=== PATIENT | male | born 1985 | race Caucasian/White ===

== ENCOUNTER 2018-03-11 10:17 | Observation (INO) | payer MEDICAID ==
--- NOTE | 2018-03-11 10:42 | EDPHY ---
H & P <Afshin Frias - Last Filed: 03/11/18 12:18> Smoking Status: Heavy smoker <Rob Franco - Last Filed: 03/11/18 16:23> Time Seen by Provider: 03/11/18 10:25 HPI/ROS: CHIEF COMPLAINT: Possible seizure HISTORY OF PRESENT ILLNESS: Patient is 32-year-old male here with his girlfriend and father with concern for possible apneic of an yesterday evening and seizure this morning. Call for an relates that approximately 2 months ago she noticed that he was gasping for air in the the night having trouble breathing. They have not followed up with a primary care physician or had any further evaluation for this. He has been suffering from insomnia and anxiety and girlfriend states that he has been taking Xanax but she does not know how often. Xanax is being given to him by a friend. She does not know if he is taking other medication for sleep and anxiety. Father states he is prescribed no medication as far as he knows. Yesterday he was feeling well and played golf and girlfriend states that there was no unusual behavior. Patient relates that yesterday evening he did cocaine and drinking alcohol. Denies other drug use history evening. He drinks most evenings but cannot say how much he drinks. Yesterday evening girlfriend notes that he was again gasping for air and who. To turn blue in the face until she repositioned him and he started breathing better and they both fell back to sleep. This morning he was acting confused and had what appeared to be a full body seizure or area girlfriend states he had shaking of all 4 extremities. She is uncertain how long this lasted but it self-resolved. He has not been sick recently and has had no fever or chills no cough sore throat vomiting or diarrhea. He has no history of seizures. REVIEW OF SYSTEMS: Constitutional: No fever, no chills. Eyes: No discharge. ENT: No sore throat. Cardiovascular: No chest pain, no palpitations. Respiratory: No cough, no shortness of breath. Gastrointestinal: No abdominal pain, no vomiting. Genitourinary: No hematuria. Musculoskeletal: No back pain. Skin: No rashes. Neurological: No headache. (Rob Franco) Physical Exam: General Appearance: Alert and no distress. Oriented to person place and time Eyes: Pupils equal and round no injection. Extraocular muscles intact Respiratory: Chest is nontender, lungs are clear to auscultation. Cardiac: regular rate and rhythm. No lower extremity edema Gastrointestinal: Abdomen is soft and nontender, no masses, bowel sounds normal. Musculoskeletal: Neck is supple and nontender. Moving all 4 extremities Extremities have full range of motion and are nontender. Skin: No rashes or lesions. (Rob Franco) Constitutional: Initial Vital Signs Temperature (C) 36.9 C 03/11/18 10:20 Heart Rate 91 03/11/18 10:20 Respiratory Rate 18 03/11/18 10:20 Blood Pressure 113/72 03/11/18 10:20 O2 Sat (%) 93 03/11/18 10:20 Allergies/Adverse Reactions: Penicillins Allergy (Verified 03/11/18 10:19) Home Medications: Medication Instructions Recorded NK [No Known Home Meds] 06/02/15 Medical Decision Making - Diagnostics Imaging: Discussed imaging studies w/ air sealing technician Radiologist, I viewed and interpreted images myself <Afshin Frias - Last Filed: 03/11/18 12:18> <Rob Franco - Last Filed: 03/11/18 16:23> - Diagnostics Imaging Results: Imaging Impressions Brain MRI 03/11/18 10:46 Impression: 1. 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 2. No acute intracranial abnormality seen or evidence of anoxic injury. If symptoms worsen, additional imaging may be necessary. These findings were discussed by telephone with Dr. Afshin Frias at 1218hrs. ED Course/Re-evaluation: 32-year-old male here with history of hypoxic event yesterday evening with gasping and then reported seizure this morning. This is likely a alcohol or benzodiazepine induced seizure. Is also positive for methamphetamines and cocaine. Be admitted for observation. MRI of the brain showed no evidence of anoxic brain injury. EKG revealed no a arrhythmia or evidence of ischemia. Labs with no acute anemia or electrolyte imbalance. (Rob Franco) Other Provider: [id number]: I spoke with Dr. Guido, radiologist, regarding patients brain MRI. There is no anoxic injury, there is an old right frontal injury. (Afshin Frias) - Data Points Laboratory Results: Laboratory Results 03/11/18 10:46 03/11/18 10:46 03/11/1818 03/11/18 10:46 10:46 10:46 WBC 11.48 10^3/uL H 10^3/uL (3.80-9.50) RBC 4.89 10^6/uL 10^6/uL (4.40-6.38) Hgb 15.2 g/dL g/dL (13.7-17.5) Hct 43.1 % % (40.0-51.0) MCV 88.1 fL fL (81.5-99.8) MCH 31.1 pg pg (27.9-34.1) MCHC 35.3 g/dL g/dL (32.4-36.7) RDW 11.9 % % (11.5-15.2) Plt Count 299 10^3/uL 10^3/uL (150-400) MPV 9.5 fL fL (8.7-11.7) Neut % (Auto) 79.8 % H % (39.3-74.2) Lymph % (Auto) 13.0 % L % (15.0-45.0) [place] % (Auto) 6.5 % % (4.5-13.0) Eos % (Auto) 0.2 % L % (0.6-7.6) Baso % (Auto) 0.3 % % (0.3-1.7) Nucleat RBC Rel Count 0.0 % % (0.0-0.2) Absolute Neuts (auto) 9.16 10^3/uL H 10^3/uL (1.70-6.50) Absolute Lymphs (auto) 1.49 10^3/uL 10^3/uL (1.00-3.00) Absolute Monos (auto) 0.75 10^3/uL 10^3/uL (0.30-0.80) Absolute Eos (auto) 0.02 10^3/uL L 10^3/uL (0.03-0.40) Absolute Basos (auto) 0.04 10^3/uL 10^3/uL (0.02-0.10) Absolute Nucleated RBC 0.00 10^3/uL 10^3/uL (0-0.01) Immature Gran % 0.2 % % (0.0-1.1) Immature Gran # 0.02 10^3/uL 10^3/uL (0.00-0.10) Sodium 136 mEq/L mEq/L (135-145) Potassium 3.9 mEq/L mEq/L (3.3-5.0) Chloride 103 mEq/L mEq/L (97-110) Carbon Dioxide 20 mEq/l L mEq/l (22-31) Anion Gap 13 mEq/L mEq/L (8-16) BUN 10 mg/dL mg/dL (7-23) Creatinine 0.8 mg/dL mg/dL (0.7-1.3) Estimated GFR > 60 Glucose 97 mg/dL mg/dL (70-100) Calcium 9.4 mg/dL mg/dL (8.5-10.4) Magnesium 1.9 mg/dL mg/dL (1.6-2.3) Total Bilirubin 1.3 mg/dL mg/dL (0.1-1.4) AST 39 IU/L IU/L (17-59) ALT 35 IU/L IU/L (21-72) Alkaline Phosphatase 48 IU/L IU/L (38-126) POC Troponin I 0.00 ng/mL ng/mL (0.00-0.08) Total Protein 6.8 g/dL g/dL (6.3-8.2) Albumin 4.1 g/dL g/dL (3.5-5.0) Urine Opiates Screen Urine Barbiturates Ur Phencyclidine Scrn Ur Amphetamine Screen U Benzodiazepines Scrn Urine Cocaine Screen U Marijuana (THC) Screen Ethyl Alcohol < 10 mg/dL mg/dL (0-10) 03/11/18 10:30 WBC RBC Hgb Hct MCV MCH MCHC RDW Plt Count MPV Neut % (Auto) Lymph % (Auto) [place] % (Auto) Eos % (Auto) Baso % (Auto) Nucleat RBC Rel Count Absolute Neuts (auto) Absolute Lymphs (auto) Absolute Monos (auto) Absolute Eos (auto) Absolute Basos (auto) Absolute Nucleated RBC Immature Gran % Immature Gran # Sodium Potassium Chloride Carbon Dioxide Anion Gap BUN Creatinine Estimated GFR Glucose Calcium Magnesium Total Bilirubin AST ALT Alkaline Phosphatase POC Troponin I Total Protein Albumin Urine Opiates Screen NEGATIVE (NEGATIVE) Urine Barbiturates NEGATIVE (NEGATIVE) Ur Phencyclidine Scrn NEGATIVE (NEGATIVE) Ur Amphetamine Screen NON-NEGATIVE H (NEGATIVE) U Benzodiazepines Scrn NEGATIVE (NEGATIVE) Urine Cocaine Screen NON-NEGATIVE H (NEGATIVE) U Marijuana (THC) Screen NON-NEGATIVE H (NEGATIVE) Ethyl Alcohol Medications Given: Acetaminophen (Tylenol) 650 mg PO Q4HRS PRN PRN Reason: Pain, Mild/Fever, Can Take PO Stop: 09/07/18 12:34 Last Admin: 03/11/18 13:40 Dose: 650 mg Folic Acid (Folic Acid) 1 mg PO DAILY STACEY Stop: 09/07/18 12:44 Last Admin: 03/11/18 13:41 Dose: 1 mg Nicotine (Nicoderm Cq) 14 mg TD DAILY STACEY Stop: 09/07/18 15:29 Last Admin: 03/11/18 15:56 Dose: 14 mg Discontinued Medications Sodium Chloride (Ns) 1,000 mls @ 0 mls/hr IV EDNOW ONE; Wide Open PRN Reason: Protocol Stop: 03/11/18 10:47 Last Admin: 03/11/18 10:47 Dose: 1,000 mls Lorazepam (Ativan) 1 mg PO BID STACEY Stop: 09/07/18 12:44 Last Admin: 03/11/18 13:41 Dose: 1 mg Point of Care Test Results: Chemistry 03/11/18 10:46 POC Troponin I 0.00 ng/mL ng/mL (0.00-0.08) Departure <Afshin Frias - Last Filed: 03/11/18 12:18> <Rob Franco - Last Filed: 03/11/18 16:23> - Departure Disposition: [facility] Inpatient Acute Condition: Fair
[2018-03-11] MEDS ORDERED: NS 1,000 ML IV ONE (10:46)
[2018-03-11 10:58] LABS: PLATELET COUNT 299 10^3/uL (150-400)
[2018-03-11] MEDS ORDERED: LORazepam 1 MG TAB PO SCH (12:45)
[2018-03-11] MEDS: ACETAMINOPHEN 325 MG TAB PO PRN ×2 (13:40→21:32)
[2018-03-11] MEDS: FOLIC ACID 1 MG TAB PO SCH (13:41)
--- NOTE | 2018-03-11 15:28 | PDGENHP ---
History and Physical - Chief Complaint seizure - History of Present Illness 32 yo male with h/o polysubstance abuse presents to ED after witnessed seizure. He has been seeing an addiction counselor and trying to cut back on etoh, but last night used etoh, cocaine and methamphetamine. He snorts his drugs, denies IVDA. GF says he gets a supply of xanax from a friend and takes a lot of them until his supply runs out. She thinks he ran out 1-2 days ago. She apparently witnessed him having an apneic episode and then he turned blue. He denies taking opiates, but has occasionally used percocet from the street per his girlfriend. In the ED, an MRI was negative for an acute process, but showed old encephalomalacia. Labs were normal. There was concern for seizure related to bzd w/d and he is admitted for further management. History Information - Allergies/Home Medication List Allergies/Adverse Reactions: Penicillins Allergy (Verified 03/11/18 10:19) Home Medications: Calcium Carbonate [Tums 500MG (*)] 500 - 1,000 mg PO Q2 PRN 03/11/18 [Last Taken 03/11/18] I have personally reviewed and updated: family history, medical history, social history, surgical history - Past Medical History Additional medical history: polysubstance abuse - Surgical History Reports: no pertinent surgical hx - Family History Additional family history: mother with alcoholism - Social History Smoking Status: Heavy smoker Alcohol Use: Heavy Drug Use: Cocaine, Marijuana, Other (meth, bzds) Additional social history: Lives with girlfriend who is present at the bedside. Review of Systems Review of Systems: ROS: 10pt was reviewed & negative except for what was stated in HPI & below Physical Exam Physical Exam: Temp Pulse Resp BP Pulse Ox 36.6 C 90 16 115/59 L 99 03/11/18 13:08 03/11/18 13:08 03/11/18 13:08 03/11/18 13:08 03/11/18 13:08 Constitutional: no apparent distress Eyes: PERRL Ears, Nose, Mouth, Throat: moist mucous membranes Cardiovascular: regular rate and rhythym, no murmur, rub, or gallop Respiratory: no respiratory distress, clear to auscultation Gastrointestinal: normoactive bowel sounds, soft, non-tender abdomen Skin: warm Musculoskeletal: full muscle strength Neurologic: AAOx3 Psychiatric: other (sedated, sleepy) Lab Data & Imaging Review 03/11/18 10:46 03/11/18 10:46 WBC 11.48 10^3/uL (3.80-9.50) H 03/11/18 10:46 RBC 4.89 10^6/uL (4.40-6.38) 03/11/18 10:46 Hgb 15.2 g/dL (13.7-17.5) 03/11/18 10:46 Hct 43.1 % (40.0-51.0) 03/11/18 10:46 MCV 88.1 fL (81.5-99.8) 03/11/18 10:46 MCH 31.1 pg (27.9-34.1) 03/11/18 10:46 MCHC 35.3 g/dL (32.4-36.7) 03/11/18 10:46 RDW 11.9 % (11.5-15.2) 03/11/18 10:46 Plt Count 299 10^3/uL (150-400) 03/11/18 10:46 MPV 9.5 fL (8.7-11.7) 03/11/18 10:46 Neut % (Auto) 79.8 % (39.3-74.2) H 03/11/18 10:46 Lymph % (Auto) 13.0 % (15.0-45.0) L 03/11/18 10:46 [place] % (Auto) 6.5 % (4.5-13.0) 03/11/18 10:46 Eos % (Auto) 0.2 % (0.6-7.6) L 03/11/18 10:46 Baso % (Auto) 0.3 % (0.3-1.7) 03/11/18 10:46 Nucleat RBC Rel Count 0.0 % (0.0-0.2) 03/11/18 10:46 Absolute Neuts (auto) 9.16 10^3/uL (1.70-6.50) H 03/11/18 10:46 Absolute Lymphs (auto) 1.49 10^3/uL (1.00-3.00) 03/11/18 10:46 Absolute Monos (auto) 0.75 10^3/uL (0.30-0.80) 03/11/18 10:46 Absolute Eos (auto) 0.02 10^3/uL (0.03-0.40) L 03/11/18 10:46 Absolute Basos (auto) 0.04 10^3/uL (0.02-0.10) 03/11/18 10:46 Absolute Nucleated RBC 0.00 10^3/uL (0-0.01) 03/11/18 10:46 Immature Gran % 0.2 % (0.0-1.1) 03/11/18 10:46 Immature Gran # 0.02 10^3/uL (0.00-0.10) 03/11/18 10:46 Sodium 136 mEq/L (135-145) 03/11/18 10:46 Potassium 3.9 mEq/L (3.3-5.0) 03/11/18 10:46 Chloride 103 mEq/L (97-110) 03/11/18 10:46 Carbon Dioxide 20 mEq/l (22-31) L 03/11/18 10:46 Anion Gap 13 mEq/L (8-16) 03/11/18 10:46 BUN 10 mg/dL (7-23) 03/11/18 10:46 Creatinine 0.8 mg/dL (0.7-1.3) 03/11/18 10:46 Estimated GFR > 60 03/11/18 10:46 Glucose 97 mg/dL (70-100) 03/11/18 10:46 Calcium 9.4 mg/dL (8.5-10.4) 03/11/18 10:46 Magnesium 1.9 mg/dL (1.6-2.3) 03/11/18 10:46 Total Bilirubin 1.3 mg/dL (0.1-1.4) 03/11/18 10:46 AST 39 IU/L (17-59) 03/11/18 10:46 ALT 35 IU/L (21-72) 03/11/18 10:46 Alkaline Phosphatase 48 IU/L (38-126) 03/11/18 10:46 POC Troponin I 0.00 ng/mL (0.00-0.08) 03/11/18 10:46 Total Protein 6.8 g/dL (6.3-8.2) 03/11/18 10:46 Albumin 4.1 g/dL (3.5-5.0) 03/11/18 10:46 Urine Opiates Screen NEGATIVE (NEGATIVE) 03/11/18 10:30 Urine Barbiturates NEGATIVE (NEGATIVE) 03/11/18 10:30 Ur Phencyclidine Scrn NEGATIVE (NEGATIVE) 03/11/18 10:30 Ur Amphetamine Screen NON-NEGATIVE (NEGATIVE) H 03/11/18 10:30 U Benzodiazepines Scrn NEGATIVE (NEGATIVE) 03/11/18 10:30 Urine Cocaine Screen NON-NEGATIVE (NEGATIVE) H 03/11/18 10:30 U Marijuana (THC) Screen NON-NEGATIVE (NEGATIVE) H 03/11/18 10:30 Ethyl Alcohol < 10 mg/dL (0-10) 03/11/18 10:46 Assessment & Plan Assessment: Seizure - suspect bzd w/d. Also consider etoh w/d vs polysubstance overdose. -ativan 0.5 mg po bid to prevent seizure from bzd w/d -ciwa protocol -seizure precautions Polysubstance abuse - drug screen positive for meth, cocaine and marijuana. BAL negative on arrival. He says he wants to get sober. -seeing an addiction counselor -CM to assist with resource counseling Full code Dispo - obs
[2018-03-11] MEDS ORDERED: PANTOPRAZOLE SODIUM 40 MG TAB PO ONE (15:44)
--- NOTE | 2018-03-11 15:52 | CPEKG ---
Test Reason : OPEN Blood Pressure : / mmHG Vent. Rate : 077 BPM Atrial Rate : 076 BPM P-R Int : 163 ms QRS Dur : 086 ms QT Int : 379 ms P-R-T Axes : 064 079 063 degrees QTc Int : 429 ms Sinus rhythm Confirmed by Richard Johnson ([id number]) on 03/11/2018 3:51:49 PM Referred By: Confirmed By:Richard Johnson
[2018-03-11] MEDS: NICOTINE 14 MG/24 HR PATCH TD SCH (15:56)
[2018-03-11] MEDS ORDERED: ONDANSETRON DISINTEGRATING 4 MG TAB PO PRN (17:11)
[2018-03-11] MEDS: LORazepam 2 MG/ML INJ IVP PRN (17:31)
[2018-03-11] MEDS: LORazepam 0.5 MG TAB PO SCH (21:32)
[2018-03-12] MEDS: LORazepam 2 MG/ML INJ IVP PRN ×2 (01:06→11:24)
[2018-03-12] MEDS: ACETAMINOPHEN 325 MG TAB PO PRN ×2 (01:08→08:50)
[2018-03-12] MEDS: NICOTINE 14 MG/24 HR PATCH TD SCH (08:43)
[2018-03-12] MEDS: FOLIC ACID 1 MG TAB PO SCH (08:44)
[2018-03-12] MEDS: LORazepam 0.5 MG TAB PO SCH (08:44)
[2018-03-12 12:03] VITALS: BP 108/70
--- NOTE | 2018-03-12 12:04 | PDDCSUM ---
Discharge Summary Discharge Summary: Date of admission 03/11/2018 Date of discharge 03/12/2018 Discharge diagnoses: 1. Seizure - possible benzodiazepine withdrawal versus polysubstance overdose induced 2. Polysubstance abuse with presumed overdose 3. Tobacco use disorder History: For details, please see H&P dated 03/11/2018. In brief, Dimas is a 32 yo male with h/o polysubstance abuse presents to ED after girlfriend found him apneic, cyanotic and noted seizure activity. MRI in the ED was negative for acute abnormality, but showed old encephalomalacia, presumably from old trauma. Hospital course: Pt was admitted to med surg on seizure precautions with CIWA protocol and scheduled low dose benzos due to concern for possible benzo withdrawal seizure. He states his drug of choice is marijuana and mushrooms. His girlfriend disagrees and cites cocaine and xanax as biggest problems for him. He also used methamphetamine the night prior to this event. He denies IVDA. He remained seizure free. He has not exhibited significant etoh withdrawal with CIWA's no higher than 5-7. We discussed inpatient rehab for his addiction disorder. His girlfriend is worried about sleep apnea and an outpatient sleep study is not unreasonable. However, I am most suspicious that this was an overdose contributing to his apnea. Follow up: 1. Dr. Karimi PCP 2. Close follow up with addiction counselor, consider inpatient rehab options Discharge meds: Ativan 0.5 mg bid x1 day, then 0.25 mg BID x2 days, the 0.25 mg hs x2 days, then off. #5 tabs no refills.
--- NOTE | 2018-03-12 14:48 | ASMTLACE ---
LACE Length of stay for Answers: Less than 1 day current admission Acuity / Level of Answers: No Care: Did the patient have an inpatient admission? # of Emergency department Answers: 1-2 visits in the last 6 months Social determinants Answers: History of substance abuse (ETOH, street drugs, prescription drugs, etc.) Mental health diagnosis (anxiety, depression, pers onality disorders, etc.) Score: 7 Date Signed: 03/12/2018 02:47 PM Electronically Signed By:PAMELA Noriega
--- NOTE | 2018-03-12 14:59 | ASDISCHSUM ---
Discharge Information Plan Status:Home with No Needs Medically Cleared to Leave:03/12/2018 Discharge Date:03/12/2018 01:10 PM CM D/C Disposition:Home, Routine, Self-Care ADT D/C Disposition:Home, Routine, Self-Care Projected Discharge Date:03/12/2018 01:10 PM Transportation at D/C:Friend Discharge Delay Reason: Follow-Up Date:03/12/2018 01:10 PM Discharge Slot: Final Diagnosis: Placement Information Patient Contact Information Contact Name:PJ Relationship:Father Address:[address] [place] [address] City:[place] Alternate Phone: State/Zip Code:[place] [address] Email: Financial Information Financial Class:Medicaid Primary Plan Desc:MEDICAID HEALTH FIRST [employer] Primary Plan Number:[id number] Secondary Plan Desc: Secondary Plan Number: Assessment Information LACE LACE Length of stay for Answers: Less than 1 day current admission Acuity / Level of Answers: No Care: Did the patient have an inpatient admission? # of Emergency department Answers: 1-2 visits in the last 6 months Social determinants Answers: History of substance abuse (ETOH, street drugs, prescription drugs, etc.) Mental health diagnosis (anxiety, depression, pers onality disorders, etc.) Score: 7 Date Signed: 03/12/2018 02:47 PM Electronically Signed By:PAMELA Noriega Case Management Discharge Plan Note Case Management Discharge Discharge Order Complete? Answers: Yes Patient to Obtain Answers: Independently Medications Transportation Arranged Answers: Family/Friends Discharge Comments Notes: Pt was admitted after a witnessed seizure by his GF 2/2 etoh, cocaine, and meth use. He has a hx of polysubstance abuse and anxiety. He is currently seeing an addictions counselor and they are working on "tapering" him off substances. He reported a day of using Adderal in the morning, drinking all day in the hot sun, and then doing cocaine and meth. He could not relate why he did this and did not appear overly distressed about relapsing. Provided him with resources for Medicaid and other treatment resources, including the [facility] support group. Pt may have some financial assistance from his father. Pt discharged today. Date Signed: 03/12/2018 02:58 PM Electronically Signed By:PAMELA Noriega Intervention Information
[2018-03-14] MEDS ORDERED: THIAMINE HCL 100 MG TAB PO SCH (12:41)
== END 2018-03-12 13:10 | disposition home or self-care (01) ==
LOC: F3N 13:01
PROVIDERS: ADMIT Hospitalist; ATTEND Hospitalist
DX: R56.9 Unspecified convulsions (principal); R09.02 Hypoxemia; F15.10 Other stimulant abuse, uncomplicated; F14.10 Cocaine abuse, uncomplicated; F12.10 Cannabis abuse, uncomplicated; F17.210 Nicotine dependence, cigarettes, uncomplicated
CPT/HCPCS: 70551; 93005; 96361; 96374; 96376; 99285; G0378; 80305; 84484-PO; G0480; J2060